=== PATIENT | male | born 1980 | race Hispanic/Latino ===

== ENCOUNTER 2025-02-19 17:44 | Emergency (ER) | payer SELFPAY ==
[2025-02-19] MEDS ORDERED: levETIRAcetam 500 MG (5 mL) VIAL ONE (17:47)
[2025-02-19 18:37] LABS: ALT (SGPT) 55 U/L (Less than 45); AST (SGOT) 118 U/L (11-34); Acetaminophen Less than 10 mcg/mL (Less than 10); Albumin 4.9 g/dL (3.1-4.5); Alkaline Phosphatase 72 U/L (40-110); Anion Gap 35 mmol/L (10-20); BUN (Urea Nitrogen) 7 mg/dL (8.9-20.6); Bilirubin, Total 0.6 mg/dL (0.3-1.2); Calc. Creatinine Clearance 0 mL/min (70-130); Calcium 9.2 mg/dL (7.8-10.44); Chloride 101 mmol/L (98-107); Globulin 3.4 g/dL (2.4-3.5); Glucose 163 mg/dL (70-105); Potassium 3.8 mmol/L (3.5-5.1); Salicylate Less than 8.0 mg/dL (Less than 8.0); Sodium 141 mmol/L (136-145)
[2025-02-19 18:55] LABS: Carbon Dioxide 9 mmol/L (22-29)
[2025-02-19 19:36] LABS: Glucose, Urine (Dipstick) Normal (Negative); Leukocyte Negative (Negative); Protein, Urine (Dipstick) 30 mg/dl (Neg-Trace); Specific Gravity, Urine 1.020 (1.005-1.030)
[2025-02-19 19:44] LABS: Cocaine Metabolite Screen Negative (Negative); THC/Cannabinoid Screen Negative (Negative); Tricyclic Screen Negative (Negative)
[2025-02-19 20:28] LABS: Bacteria/HPF None Seen HPF (None Seen); CAUTI Indications for Culture Alt mental st,lethar; RBC/HPF None Seen HPF (0-3); Urine Culture Reflex No No; WBC/HPF None Seen HPF (0-3)
[2025-02-19 20:57] LABS: Anion Gap 18 mmol/L (10-20); BUN (Urea Nitrogen) 5 mg/dL (8.9-20.6); Calc. Creatinine Clearance 0 mL/min (70-130); Calcium 8.3 mg/dL (7.8-10.44); Carbon Dioxide 21 mmol/L (22-29); Chloride 104 mmol/L (98-107); Glucose 112 mg/dL (70-105); Potassium 3.8 mmol/L (3.5-5.1); Sodium 139 mmol/L (136-145)
== END 2025-02-19 21:20 | disposition home or self-care (01) ==
LOC: CSHERS 17:44
DX: G40.909 Epilepsy, unspecified, not intractable, without status epilepticus (principal); E86.0 Dehydration
CPT/HCPCS: 36415; 70450; 72125; 80053; 80306; 80307; 81001; 82550; 84146; 93005; 96374; 96375; J1953; J2060